=== PATIENT | female | born 1945 | race Caucasian/White ===

== ENCOUNTER 2017-02-13 22:50 | Inpatient (IN) | payer MEDICARE, OTHER ==
[~2017-02-13] VITALS: Ht 152.4 cm; Wt 65.6 kg
[2017-02-13 22:58] VITALS: BP 152/82; PULSE 105; RESP 20; O2SAT 96
--- NOTE | 2017-02-13 23:08 | ED.REPORT ---
HPI-General Illness Date of Service Feb 13, 2017 ED Provider: Dr. Albert Pt is a 72 year old female presenting to the ED due to altered mental status. Her reports that he came out of his room and found the pt lying on the floor and confused. She arrives to the ED febrile. Denies hx of stroke, head pain or hitting her head, neck pain, cough, vomiting, or dysuria. Her states that she was normal all day today until just prior to arrival. Nursing Notes Stated Complaint: FEVER, CONFUSION Chief Complaint: General Complaint Nursing Notes Reviewed: Yes Allergies: Coded Allergies: ceftriaxone (Verified Allergy, Intermediate, Rash,Itching,, 02/14/17) General Time Seen by MD: 23:08 Chief Complaint Altered mental status, Fever Hx Obtained From: Spouse Arrived By: Walk-in Sudden in Onset?: Yes Onset Occurred: Just prior to arrival Symptom Duration: Since onset Severity: Current: No pain currently Severity: Maximum: No pain Recent Healthcare: No recent doctor visit, No recent hospitalization Similar Sx Previous: No Past Medical History Past Medical History denies Past Surgical History Right sided hip replacement Reports: Tonsillectomy Smoking History Unknown if Ever Smoker Ambulatory Status Independent Review of Systems Unable to Obtain ROS Mental status Physical Exam Vital Signs Vital Signs Date Time Temp Pulse Resp B/P Pulse Ox O2 Delivery O2 Flow Rate FiO2 02/14/17 00:57 98 23 144/91 94 Room Air 02/13/17 22:58 38.6 105 20 152/82 96 Room Air Initial VS: Reviewed General/Constitutional: Well-developed, Well-nourished Head / Eyes: Atraumatic, Normocephalic, PERRL ENT: Mucous membranes moist, Conjunctiva normal, No scleral icterus Neck: Supple, Non-tender, Full range of motion Respiratory: Breath sounds normal, Clear to auscultation, No respiratory distress Cardiovascular: Regular rate & rhythm, Heart sounds normal, Intact distal pulses Abdomen / GI: Soft, Non-tender, No guarding, No rebound, No distention Extremities: Vascular intact, Neuro intact, No swelling, No tenderness Skin: Warm, Dry, No cyanosis Psychiatric: Mood/affect normal, Behavior normal, Normal thought content Neurologic: Oriented X3, Speech NL, No motor deficits, No sensory deficits, CN II - XII intact Confused, slow to respond. Does not seem to be processing very well. Interpretation & Diagnostics Lab Results Interpretation Result Diagram: 02/13/17 2341 02/13/17 2341 Test 02/13/17 23:41 02/14/17 00:00 02/14/17 00:55 02/14/17 00:59 White Blood Count 8.0th/mm3 (3.8-10.1) Red Blood Count 4.48mil/mm3 (3.90-5.20) Hemoglobin 13.4g/dL (12.0-15.6) Hematocrit 39.1% (35.0-46.0) Mean Corpuscular Volume 87.3fL (81-100) Mean Corpuscular Hemoglobin 29.9pg (27.0-35.0) Mean Corpuscular Hemoglobin Concent 34.3% (32.0-37.0) Red Cell Distribution Width 13.7% (12.3-15.4) Platelet Count 210bil/L (150-400) Neutrophils (%) (Auto) 75.8% (40-74) Lymphocytes (%) (Auto) 13.2% (14-46) Monocytes (%) (Auto) 8.9% (4-12) Eosinophils (%) (Auto) 1.5% (0-5) Basophils (%) (Auto) 0.5% (0-3) Sodium Level 137mEq/L (134-144) Potassium Level 3.9mEq/L (3.5-5.2) Chloride Level 102mEq/L (97-108) Carbon Dioxide Level 18mmol/L (18-29) Blood Urea Nitrogen 14mg/dL (8-27) Creatinine 0.88mg/dL (0.57-1.00) Estimat Glomerular Filtration Rate 91mL/min (>59) Glucose Level 154mg/dL (60-99) Calcium Level 9.2mg/dL (8.5-10.1) Magnesium Level 2.1mg/dL (1.6-2.6) Total Bilirubin 0.7mg/dL (0.0-1.2) Aspartate Amino Transf (AST/SGOT) 41U/L (0-50) Alanine Aminotransferase (ALT/SGPT) 41U/L (0-32) Alkaline Phosphatase 98U/L (25-165) Troponin T 0.010ug/L (0.0-0.011) Total Protein 7.7g/dL (6.4-8.4) Albumin 4.2g/dL (3.4-5.0) Alcohols < 10mg/dL (0-10) Procalcitonin 0.10ng/mL (0.00-0.08) Urine Opiates Screen Negative Urine Methadone Screen Negative Urine Barbiturates Screen Negative Urine Amphetamines Screen Negative Urine Benzodiazepines Screen Negative Urine Cocaine Metabolite Screen Negative Urine Cannabinoids Screen Negative Urine Color Yellow (YELLOW) Urine Appearance Cloudy (CLEAR,HAZY) Urine pH 6.0 (5.0-8.0) Urine Specific [place] 1.025 (1.003-1.035) Urine Protein 30mg/dL (NEG,TRACE) Urine Glucose (UA) Negativemg/dL (NEGATIVE) Urine Ketones Tracemg/dL (NEGATIVE) Urine Occult Blood Negative (NEGATIVE) Urine Nitrite Negative (NEGATIVE) Urine Bilirubin Negative (NEGATIVE) Urine Urobilinogen 1.0mg/dL (NORMAL) Urine Leukocyte Esterase Negative (NEGATIVE) Urine RBC 0-2/hpf (0-2) Urine WBC 0-5/hpf (0-5) Urine Epithelial Cells Moderate/hpf (NONE-MOD) Urine Crystals Amorphous urates (NONE Urine Bacteria Moderate/hpf (NONE-FEW) Urine Hyaline Casts None/lpf (NONE) Urine Granular Casts Occasional (NONE SEEN) Urine Waxy Casts None seen (NONE SEEN) Urine Red Blood Cell Casts None seen (NONE SEEN) Urine White Blood Cell Casts None seen (NONE SEEN) Urine Mucus Present (None Seen) Urine Trichomonas None seen (NONE SEEN) Urine Yeast None (NONE SEEN) Urinalysis Comment None Urine Culture Reflexed Indicated ECG Interpretation ECG Interpretation: Non specific ST-T wave changes. Sinus tachycardia. Ventricular premature complex. Probable left atrial enlargement. LVH with secondary repolarization abnormality. Time: 00:19 Interpreted by: ED physician Normal ECG Interpretation: Normal rate (99) X-Ray Chest Interpretation Chest Xray Interpretation: Poor inspiration, streaking at the right base. Pneumonia. View: Portable, 1 view Interpretation / Wet Read by: Wet read ED physician CT Head Interpretation IMPRESSION: No CT evidence of hemorrhage, mass or acute infarct. This report was transmitted to the emergency room at 02/14/2017 - 12:04:32 AM PDT. Study: Head CT no contrast Interpretation / Wet Read by: Interpret - Radiologist CT C-Spine Interpretation CONCLUSION: No CT evidence of fracture or dislocation. This report was transmitted to the emergency room at 02/14/2017 - 12:09:57 AM PDT. Study type: CT no contrast Interpretation / Wet Read by: Interpret - Radiologist Re-Eval/Medical Decision Med Decision/Clinical Course 72-year-old female in good health generally, presents today with an apparent syncopal episode and confusional state following. The confusion is improving. She has an incidental fever noted. Her x-ray of her chest shows some increased markings in the right lower lobe that may be early pneumonia. Urine is unremarkable. Remainder of her labs essentially unremarkable. CT cranium is negative. Suspect confusional state may be from a seizure of new onset. We will treat her fever and potential lung infection with Rocephin and azithromycin IV. Unfortunately, developed hand itching and flushing after administration of Rocephin. Benadryl given for her symptoms, with improvement. Admitted now to the medicine service for further evaluation and management. Time of Eval: 01:14 Patient Status: Condition improved Re-Evaluation/Progress Note: Discussed plan for admission. Pt understands and agrees with plan. Consultation : Referral / Consult Name: Westley Cisneros MD Consulted With: Hospitalist Call Returned at: 01:29 Size Marker: Will see patient, Agrees with plan, Accepts admit Counseled Regarding: Diagnosis, Lab results, Need for admission Discharge & Departure Primary Impression: Altered mental status Altered mental status type: unspecified Qualified Code: R41.82 - Altered mental status, unspecified Additional Impressions: Sepsis Sepsis type: sepsis due to unspecified organism Qualified Code: A41.9 - Sepsis, unspecified organism Pneumonia Pneumonia type: due to unspecified organism Laterality: unspecified laterality Lung location: unspecified part of lung Qualified Code: J18.9 - Pneumonia, unspecified organism Disposition: ADMITTED TO HOSPITAL Discharge Condition All VS Reviewed: Yes Condition: Improved Referrals: Elisabeth Zapata (PCP) Rosaura Attestation Portions of this note were transcribed by Kelsy Etienne. I, Dr. Albert personally performed the history, physical exam and medical decision-making; I reviewed and confirmed the accuracy of the information in the transcribed note. Signed by: Rosaura Chen, 02/13/2017. copies to: Elisabeth Zapata Christopher W MD Feb 13, 2017 23:08 KELSY ETIENNE Feb 13, 2017 23:15
[2017-02-13 23:44] LABS: BASOPHILS % (AUTO) 0.5 % (0-3); EOSINOPHILS % (AUTO) 1.5 % (0-5); MONOCYTES % (AUTO) 8.9 % (4-12); Mean Corpuscular Hemoglobin 29.9 pg (27.0-35.0); Mean Corpuscular Volume 87.3 fL (81-100); NEUTROPHILS % (AUTO) 75.8 % (40-74); Platelet Count 210 bil/L (150-400)
[2017-02-14] VITALS (10 sets, daily range): BP systolic 144–173; BP diastolic 84–105; PULSE 75–98; RESP 16–23; O2SAT 94–99
[2017-02-14 00:06] LABS: TROPONIN T 0.01 ug/L (0.0-0.011)
[2017-02-14 00:17] LABS: Magnesium 2.1 mg/dL (1.6-2.6)
[2017-02-14 01:08] LABS: APPEARANCE,URINE CLOUDY (CLEAR,HAZY); COLOR,URINE YELLOW (YELLOW); OCCULT BLOOD,URINE NEGATIVE (NEGATIVE)
[2017-02-14] MEDS ORDERED: cefTRIAXone Inj 2,000 MG in Dextrose 5% Minibag Plus 50 ML IV ONE (01:20)
[2017-02-14] MEDS ORDERED: 0.9% Sodium Chloride 1,000 ML IV ONE (01:20)
[2017-02-14] MEDS ORDERED: Azithromycin Inj 500 MG in Dextrose 5% w/Vial Mate 250 ML IV ONE (01:20)
[2017-02-14] MEDS ORDERED: Alum-Mag Hydrox-Simeth 30 mL Suspension PO PRN (01:30)
[2017-02-14] MEDS ORDERED: Polyethylene Glycol (PEG) 17 Gm Powder PO PRN (01:30)
[2017-02-14] MEDS ORDERED: cefTRIAXone Inj 2,000 MG in Dextrose 5% Minibag Plus 50 ML IV SCH ×2 (02:20→23:00)
[2017-02-14] MEDS: 0.9% Sodium Chloride 1,000 ML IV SCH ×3 (02:33→21:55)
[2017-02-14] MEDS: Levofloxacin 750 mg/150 mL D5W IV SCH (02:33)
--- NOTE | 2017-02-14 03:12 | PCM.HPMED ---
Subjective Date of Service Feb 14, 2017 Primary Provider: Admitting Physician: Primary Care Physician: Nopjamila Attending Physician: Admit Status: From the Emergency Department, Full Admit, PCC Telemetry Chief Complaint: Confusion or fever History of Present Illness: Maria Teresa Mcdaniels is a 72 year old female with no reported Medical history presenting to [facility] emergency department due to altered mental status and confusion. Her reports that he came out of his room and found the pt lying on the floor and confused. then called 911. Patient is poor historian but states she has been weak and fell multiple times at home. she also reported a dry cough. Her states that she was normal all day today until just prior to arrival. Case discussed with Dr Albert, fever documented and CXR showed possible infiltrates and will be admitted for pneumonia treatment. antibiotics initiated Review of Systems: unable to be obtained as patient is confused and poor historian Allergies Coded Allergies: ceftriaxone (Verified Allergy, Intermediate, Rash,Itching,, 02/14/17) Home Medications Patient reported taking no medications PMH None reported Surgical History Right sided hip replacement Tonsillectomy Family History unable to be obtained Social History Hx Alcohol Use: Yes (occasional) Hx Substance Use: No Hx Tobacco Use: No Smoking Status: Unknown if Ever Smoker Living Arrangement: with Family (with her ) Exam Vital Signs Vital Sign - Last Date Time Temp Pulse Resp B/P Pulse Ox O2 Delivery O2 Flow Rate FiO2 02/14/17 00:57 98 23 144/91 94 Room Air 02/13/17 22:58 38.6 Exam General: Alert and oriented to self and place but no time. No acute Distress Eyes: PERRLA, Scleral Anicteric Mouth: Mouth Normal, Mucous Membranes dry Neck: Supple, no Thyromegaly, trachea central. Chest & Lungs: Clear to auscultation & percussion, No adventitious breath sounds, no crackles, no wheeze Cardiovascular: Normal S1, Normal S2, No Murmurs/Rubs/Gallops, Regular Rate/ Rhythm, (No JVD, no peripheral edema) Pulses: Radial (present and equal), Dorsalis Pedi (present and equal) Abdomen: Soft, Non-tender, Non-distended, Normoactive bowel tones. Musculoskeletal: Unremarkable. Normal range of motion, no swollen or erythematous joints Extremities: No edema, no cyanosis, no clubbing. Skin: No rashes. Warm and dry, no erythematous areas Neurological: Grossly neurologically intact, Normal Speech, Sensation Intact Lymphatic: Lymph nodes Cervical and Axillary not palpable. Lab and Diagnostics Labs Laboratory Tests Test 02/13/17 23:41 02/14/17 00:55 02/14/17 00:59 White Blood Count 8.0th/mm3 (3.8-10.1) Red Blood Count 4.48mil/mm3 (3.90-5.20) Hemoglobin 13.4g/dL (12.0-15.6) Hematocrit 39.1% (35.0-46.0) Mean Corpuscular Volume 87.3fL (81-100) Mean Corpuscular Hemoglobin 29.9pg (27.0-35.0) Mean Corpuscular Hemoglobin Concent 34.3% (32.0-37.0) Red Cell Distribution Width 13.7% (12.3-15.4) Platelet Count 210bil/L (150-400) Neutrophils (%) (Auto) 75.8% (40-74) Lymphocytes (%) (Auto) 13.2% (14-46) Monocytes (%) (Auto) 8.9% (4-12) Eosinophils (%) (Auto) 1.5% (0-5) Basophils (%) (Auto) 0.5% (0-3) Sodium Level 137mEq/L (134-144) Potassium Level 3.9mEq/L (3.5-5.2) Chloride Level 102mEq/L (97-108) Carbon Dioxide Level 18mmol/L (18-29) Blood Urea Nitrogen 14mg/dL (8-27) Creatinine 0.88mg/dL (0.57-1.00) Estimat Glomerular Filtration Rate 91mL/min (>59) Glucose Level 154mg/dL (60-99) Lactic Acid Level 2.7mmol/L (0.4-2.0) Calcium Level 9.2mg/dL (8.5-10.1) Magnesium Level 2.1mg/dL (1.6-2.6) Total Bilirubin 0.7mg/dL (0.0-1.2) Aspartate Amino Transf (AST/SGOT) 41U/L (0-50) Alanine Aminotransferase (ALT/SGPT) 41U/L (0-32) Alkaline Phosphatase 98U/L (25-165) Troponin T 0.010ug/L (0.0-0.011) Total Protein 7.7g/dL (6.4-8.4) Albumin 4.2g/dL (3.4-5.0) Alcohols < 10mg/dL (0-10) Urine Opiates Screen Negative Urine Methadone Screen Negative Urine Barbiturates Screen Negative Urine Amphetamines Screen Negative Urine Benzodiazepines Screen Negative Urine Cocaine Metabolite Screen Negative Urine Cannabinoids Screen Negative Urine Color Yellow (YELLOW) Urine Appearance Cloudy (CLEAR,HAZY) Urine pH 6.0 (5.0-8.0) Urine Specific [place] 1.025 (1.003-1.035) Urine Protein 30mg/dL (NEG,TRACE) Urine Glucose (UA) Negativemg/dL (NEGATIVE) Urine Ketones Tracemg/dL (NEGATIVE) Urine Occult Blood Negative (NEGATIVE) Urine Nitrite Negative (NEGATIVE) Urine Bilirubin Negative (NEGATIVE) Urine Urobilinogen 1.0mg/dL (NORMAL) Urine Leukocyte Esterase Negative (NEGATIVE) Urine RBC 0-2/hpf (0-2) Urine WBC 0-5/hpf (0-5) Urine Epithelial Cells Moderate/hpf (NONE-MOD) Urine Crystals Amorphous urates (NONE Urine Bacteria Moderate/hpf (NONE-FEW) Urine Hyaline Casts None/lpf (NONE) Urine Granular Casts Occasional (NONE SEEN) Urine Waxy Casts None seen (NONE SEEN) Urine Red Blood Cell Casts None seen (NONE SEEN) Urine White Blood Cell Casts None seen (NONE SEEN) Urine Mucus Present (None Seen) Urine Trichomonas None seen (NONE SEEN) Urine Yeast None (NONE SEEN) Urinalysis Comment None Urine Culture Reflexed Indicated Microbiology 02/14/17 Urine Culture, Received Pending Result Diagram: 02/13/17 2341 02/13/17 2341 Assessment & Plan Maria Teresa Mcdaniels is a 72 year old female with no reported Medical history presenting to [facility] emergency department due to altered mental status and confusion 1. Acute Encephalopathy. Present on admission Etiology likely due to infection from Pneumonia. CT head showed no bleeding or other pathology. I suspect the patient has baseline chronic dementia - avoid psychoactive medications due to increased risk for delirium - treat underlying cause 2 Acute Community acquired pneumonia with possible Aspiration pneumonia. Present on admission Procalcitonin elevated with possible infiltrates in chest x ray - nothing by mouth, Swallow evaluation pending - Levaquin IV for empiric antibiotics (Allergy to Ceftriaxone IV noted) - Blood cultures, procalcitonin - IV fluids resuscitation 3. Fever. Present on admission Likely due to pneumonia. no other source identified with normal urinalysis. Differential diagnosis includes autoimmune disease or venous thrombotic embolism - monitor vitals signs - Acetaminophen as needed for mild pain/fever/headache - Bowel regimen as needed - Antiemetic as needed Patient admitted under inpatient status with expected length of stay > 2 midnights for severity of present symptoms, complexities of treatment plan and risk for adverse event . Resuscitation Status: CPR: Attempt Resuscitation Westley Cisneros MD Feb 14, 2017 01:35
--- NOTE | 2017-02-14 03:50 | NUR ---
Assumed care of pt at 0300 from ED. Transfer from [facility] to bed with slide board. Lethargic, oriented to place/person. Unable to answer questions meaningfully. Hypertensive, SBP 160's/90, Dr. Estes notified. Afebrile, all other VSS. Pt denies SOB, no wheeze or hives noted. LS decreased at bases. Maintains 99% on room air. Pt tearful, asking "can I go home?" NPO at this time, IV abx and fluids infusing. Addendum: 02/14/17 at 0639 by KIRSTEN PAZ RN At 0630 during hourly rounding pt observed to be tearful, eyes wide, appears anxious. Asked if anything was bothering her, pt stated "I feel like I'm having some trouble swallowing." Pt NPO until swallow eval today. No wheezes noted, SpO2 98% on room air, no hypotension/hives/itching noted. Provider notified, plan to continue established course of tx.
[2017-02-14] MEDS ORDERED: MethylprednisoLONE Sodium Succinate 40 mg/mL Inj IVPUSH ONE (06:35)
--- NOTE | 2017-02-14 08:14 | DRSVH ---
PROCEDURE: X-RAY CHEST ONE VIEW, PORTABLE ([id number]) INDICATIONS: Possible pneumonia TECHNIQUE: One view of the chest was acquired. COMPARISON: [facility], CR, CHEST 2VW, 10/25/2006, 20:53. FINDINGS: Surgical changes and devices: None. Lungs and pleura: Mild right lower lobe infiltrate suspicious for pneumonia. No pleural effusions or pneumothorax. Lungs are clear. Mediastinum: Mediastinal contours appear normal. Heart size is normal. Bones and chest wall: No suspicious bony lesions. Overlying soft tissues appear unremarkable. Old right seventh or fracture. IMPRESSION: Suspected right lower lobe pneumonia Dictated by: Ariel Gutierrez M.D. on 02/14/2017 at 8:09 Approved by: Ariel Gutierrez M.D. on 02/14/2017 at 8:12
[2017-02-14] MEDS: Heparin 5,000 Unit/mL Inj SUBQ SCH ×2 (08:30→17:15)
--- NOTE | 2017-02-14 08:50 | DRSVH ---
PROCEDURE: CT BRAIN WITHOUT CONTRAST ([id number]) INDICATIONS: altered ms, fall TECHNIQUE: Noncontrast 4.5 mm thick angled axial sections acquired from the foramen magnum to the vertex, with c oronal reformats. COMPARISON: None. FINDINGS: Image quality: Excellent. CSF spaces: Basal cisterns are patent. No extra-axial fluid collections. The ventricles are symmet ava in size and shape. Brain: No intracranial bleeds or masses. There is an old lacunar infarct in the right caudate. Ther e is moderate cerebral volume loss for age, with resultant ventricular and sulcal prominence. There are moderate periventricular and deep white matter chronic small vessel ischemic changes. There is i ntracranial internal carotid artery atherosclerosis. Skull and face: Calvarium and visualized facial bones appear intact, without suspicious lesions. Sinuses: Mild right maxillary sinus mucosal thickening. Mastoids are clear. IMPRESSION: 1. No acute intracranial abnormalities. 2. 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 3. Moderate cerebral volume loss and chronic microvascular ischemic changes. No significant discrepancy with the rock splitter radiology preliminary report. Dictated by: Ariel Gutierrez M.D. on 02/14/2017 at 8:46 Approved by: Ariel Gutierrez M.D. on 02/14/2017 at 8:49
--- NOTE | 2017-02-14 08:54 | DRSVH ---
PROCEDURE: CT CERVICAL SPINE WITHOUT CONTRAST ([id number]) INDICATIONS: altered ms, fall TECHNIQUE: Noncontrast 3 mm thick sections acquired from the skull base to the T4 level. Sagittal and coronal r eformats were then constructed. For radiation dose reduction, the following was used: automated exp osure control, adjustment of mA and/or kV according to patient size. COMPARISON: None. FINDINGS: Image quality: Excellent. Bones: No fractures or dislocations. Visualized superior ribs are intact. Moderate degenerative di sc disease at C5-C6. Soft tissues: Prevertebral soft tissues are normal in thickness. No paravertebral hematomas. No ap ical pneumothoraces. IMPRESSION: 1. No fracture or dislocation. 2. Degenerative disc disease at C5-C6. No significant discrepancy with the lieutenant shift supervisor radiology preliminary report. Dictated by: Ariel Gutierrez M.D. on 02/14/2017 at 8:50 Approved by: Ariel Gutierrez M.D. on 02/14/2017 at 8:53
--- NOTE | 2017-02-14 11:03 | NUR ---
Evaluation completed. Please go to "Notes" then click on "Assessments and Notes" (bottom left corner of screen). Then select appropriate discipline tab on top of screen.
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
[2017-02-14] MEDS ORDERED: Azithromycin Inj 500 MG in Dextrose 5% w/Vial Mate 250 ML IV SCH (23:00)
[2017-02-15] MEDS: Heparin 5,000 Unit/mL Inj SUBQ SCH ×2 (00:30→08:07)
[2017-02-15] MEDS: Levofloxacin 750 mg/150 mL D5W IV SCH (02:38)
[2017-02-15 03:17] LABS: BASOPHILS % (AUTO) 0.2 % (0-3); EOSINOPHILS % (AUTO) 0.1 % (0-5); MONOCYTES % (AUTO) 8.9 % (4-12); Mean Corpuscular Hemoglobin 30.1 pg (27.0-35.0); Mean Corpuscular Volume 90.9 fL (81-100); Platelet Count 228 bil/L (150-400)
[2017-02-15 03:29] VITALS: BP 172/81; PULSE 70; RESP 18; O2SAT 97
[2017-02-15 05:13] LABS: Magnesium 2.1 mg/dL (1.6-2.6)
--- NOTE | 2017-02-15 06:05 | NUR ---
Shift Summary Pt slept off and on this shift. Alert, oriented to self. Unable to make needs known, observed exiting bed unassisted x2. Garza alarm in place for safety. No cough noted, denies pain or discomfort, maintains 100% on room air.
[2017-02-15 06:07] VITALS: PULSE 70
[2017-02-15] MEDS: 0.9% Sodium Chloride 1,000 ML IV SCH (06:43)
[2017-02-15 07:45] VITALS: BP 184/94; PULSE 76; RESP 16; O2SAT 98
[2017-02-15 10:35] VITALS: PULSE 78
[2017-02-15 11:45] VITALS: BP 152/80; PULSE 75; RESP 18; O2SAT 97
--- NOTE | 2017-02-15 14:34 | NUR ---
Social Work: Initial Assessment/Readiness for Discharge/Multidisciplinary Rounds D: EMR reviewed. Please see initial assessment linked for more information. Pt is a 72 y/o female admitted [place] - readmit risk score of 1 - for AMS, sepsis, and pneumonia per H&P. Pt's insurance is [facility]. Pt does not have a PCP - SW provided information for [facility] to schedule a follow-up appointment when clinic is open tomorrow. Pt agreeable. SW met with pt and spouse at bedside to conduct initial assessment. Pt was alert and oriented x3. SW explained role, wrote phone number on board in room, and provided [facility] Discharge Planning Checklist and encouraged pt to contact SW with any discharge planning needs or questions. Pt discussed in multidisciplinary rounds and is medically stable for discharge back to [facility] today with spouse via POV. SW discussed potential discharge planning needs with medical team - no needs identified - MD order received to schedule PCP - [facility] clinic is closed on the weekend. SW provided information for [facility] to schedule a follow-up appointment when clinic is open tomorrow. SW asked if pt had any concerns/questions regarding discharge - pt declined and stated she is ready to go. No other needs identified. Pt lives at [facility] with her spouse where there is elevator and wheelchair access. Pt has no hx at a SNF or with HH. Pt owns a walker, wheelchair, and cane. Pt is independent with ambulations and ADLs. Pt's spouse stated pt is independent but does not drive. Pt and spouse provide support for each other and state they have ample support at their fdc community. Pt's spouse confirmed he will transport pt home via POV today. A: Pt who is independent at baseline P: Pt to discharge home with spouse via POV. No SW needs identified, no MD orders received. SW will continue to follow until time of discharge for any needs that may arise. KIARA Todd Addendum: 02/15/17 at 1448 by FRANKLYN CAVAZOS SS Amended: Links added.
--- NOTE | 2017-02-15 15:21 | NUR ---
Social Work: Discharge D: EMR reviewed. Pt is on day 1 of hospitalization. Pt is medically stable for discharge home today with spouse. No SW needs identified, no MD orders received. Pt's spouse confirmed he will transport pt home via POV today. A: Pt who is independent at baseline P: Pt to discharge home with spouse via POV. No SW needs identified, no MD orders received. SW discussed discharge with pt - pt and spouse have no concerns are state they are ready to go. KIARA Todd
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
--- NOTE | 2017-02-15 15:54 | PCM.DIMED ---
Discharge Instructions Date of Service Feb 15, 2017 Dates of Hospitalization Feb 14, 2017 at 02:24 Discharge Diagnosis Discharge Diagnosis Community acquired pneumonia Essential Hypertension Diet Discharge Diet: No restrictions Activity Discharge Activity: No restrictions Call your provider Call your provider for: Fever or Chills, Shortness of breath Patient Instructions Follow-up plan - Discharged in stable condition - Please continue antibiotic (Levaquin) as prescribed for 3 additional days - Blood pressure medication was prescribed on discharge as well given elevated blood pressure during stay. This may have been worsened by infection. Plan to continue Lisinopril 10mg PO daily. Follow up with primary care doctor for blood pressure check. Additional medications may be needed for good control. Follow-up Provider: Elisabeth Zapata Follow-up with PCP in: 1 week Darion Drew DO Feb 15, 2017 15:54
[2017-02-15] MEDS ORDERED: LEVO750T9 PO (16:01)
[2017-02-15] MEDS ORDERED: LISI-610 PO (16:01)
--- NOTE | 2017-02-15 16:34 | NUR ---
Discharge Pt discharged at 1620. She was given discharge instructions and instructions for follow up care. She was given medication education. She was leaving with 2 new prescriptions which she was given hard copies of. Her was present with her at time of discharge. They denied any questions. She left with all of her belongings in her possession. She was walked to the exit by unit staff where her picked her up in their car.
== END 2017-02-15 16:20 | disposition home or self-care (01) | DRG 193 ==
LOC: SED 22:50 → PCC 02-14 02:24
PROVIDERS: ADMIT Hospitalist; ATTEND Family Medicine
DX: J18.9 Pneumonia, unspecified organism (principal); G93.40 Encephalopathy, unspecified; F03.90 Unspecified dementia, unspecified severity, without behavioral disturbance, psychotic disturbance, mood disturbance, and anxiety; L50.9 Urticaria, unspecified; T36.1X5A Adverse effect of cephalosporins and other beta-lactam antibiotics, initial encounter; Y92.230 Patient room in hospital as the place of occurrence of the external cause; V89.2XXS Person injured in unspecified motor-vehicle accident, traffic, sequela